=== PATIENT | female | born 1940 | race Caucasian/White ===

== ENCOUNTER 2023-09-05 23:03 | Inpatient (IN) | payer MEDICARE ==
[~2023-09-05] VITALS: Ht 152.4 cm; Wt 54.9 kg
[2023-09-06 00:16] LABS: BASOPHILS % (AUTO) 0.5 % (0.0-2.0); EOSINOPHILS # (AUTO) 0.2 K/uL (0.0-0.7); EOSINOPHILS % (AUTO) 2.1 % (0.0-7.0); HEMATOCRIT 29.8 % (31.2-41.9); HEMOGLOBIN 9.1 g/dL (10.9-14.3); LYMPHOCYTES # (AUTO) 2.5 K/uL (0.8-4.8); MEAN CORPUSCULAR HEMOGLOBIN 21.8 uug (24.7-32.8); MEAN CORPUSCULAR HGB CONC 31 g/dL (32.3-35.6); MEAN CORPUSCULAR VOLUME 71.1 fL (75.5-95.3); MONOCYTES # (AUTO) 0.9 K/uL (0.1-1.30); MONOCYTES % (AUTO) 11.9 % (0.0-11.0); NEUTROPHILS # (AUTO) 3.9 K/uL (1.8-8.9); NEUTROPHILS % (AUTO) 52.5 % (38.5-71.5); PLATELET COUNT (AUTO) 434 K/uL (179-408); RED BLOOD CELL COUNT(AUTO) 4.19 MIL/uL (3.63-4.92); RED CELL DISTRIBUTION WIDTH 20.3 % (12.3-17.7); WHITE BLOOD COUNT (AUTO) 7.5 K/uL (3.8-11.8)
[2023-09-06 00:18] LABS: DIFFERENTIAL COMMENT 1
[2023-09-06 00:28] LABS: *BILIRUBIN,URIN NEGATIVE (NEGATIVE); *BLOOD, URINE NEGATIVE (NEGATIVE); *CLARITY,URINE CLEAR (CLEAR); *COLOR,URINE YELLOW (YELLOW); *KETONES,URINE NEGATIVE (NEGATIVE); *PROTEIN,URINE NEGATIVE (NEGATIVE); *UROBILINOGEN,URINE 0.2 E.U./dl (NORMAL); LEUKOCYTE ESTERASE ,URINE 1+ (NEGATIVE); NITRITE, URINE NEGATIVE (NEGATIVE); PH,URINE 6.5 (5.0-8.0); UGLUCOSE NEGATIVE (NEGATIVE)
[2023-09-06 00:28] LABS: CALCIUM 8.7 mg/dL (8.5-10.1); CARBON DIOXIDE 22 mmol/L (21-32); CHLORIDE 102 mmol/L (98-107); CREATININE 0.8 mg/dL (0.6-1.3); GLUCOSE 123 mg/dL (74-106); POTASSIUM 3.6 mmol/L (3.5-5.1); SODIUM SERUM 137 mmol/L (136-145); UREA NITROGEN, BLOOD 14 mg/dL (7-18)
[2023-09-06 00:33] LABS: ETHANOL < 3 MG/DL (0-10)
[2023-09-06 00:34] LABS: ALANINE AMINOTRANSFERASE 17 U/L (14-59); ALBUMIN 3.3 g/dL (3.4-5.0); ALKALINE PHOSPHATASE 74 U/L (50-136); ASPARTATE AMINOTRANSFERASE 16 U/L (15-37); BILIRUBIN,DIRECT 0.1 mg/dL (0.0-0.2); BILIRUBIN,TOTAL 0.4 mg/dL (0.2-1.0); TOTAL PROTEIN, SERUM 7.3 g/dL (6.4-8.2)
[2023-09-06 00:35] LABS: *AMPHETAMINE, URINE NEGATIVE (NEGATIVE); *BARBITURATE, URINE NEGATIVE (NEGATIVE); *BENZODIAZEPINE, URINE NEGATIVE (NEGATIVE); *CANNABINOID, URINE NEGATIVE (NEGATIVE); *COCCAINE, URINE NEGATIVE (NEGATIVE); *OPIATE, URINE NEGATIVE (NEGATIVE); *PHENCYCLIDINE SCREEN,URINE NEGATIVE (NEGATIVE); FENTANYL, URINE NEGATIVE (NEGATIVE)
[2023-09-06 00:37] LABS: ACETAMINOPHEN < 10.0 ug/mL (10-30)
[2023-09-06 00:42] LABS: THYROID STIMULATING HORMONE 5.553 mIU/mL (0.358-3.740)
[2023-09-06 00:50] LABS: BACTERIA,URINE FEW /HPF (NONE SEEN); RBC,URINE 0-3 /HPF (0-3)
[2023-09-06 00:51] LABS: SQUAMOUS EPITHELIAL CELL,UR MODERATE /HPF (NONE SEEN)
[2023-09-06 01:07] LABS: EOSINOPHILS % (MANUAL) 2 % (0-8); LYMPHOCYTES % (MANUAL) 32 % (20-40); MONOCYTES % (MANUAL) 9 % (2-10); NEUTROPHILS % (MANUAL) 57 % (42-75); PLATELET ESTIMATE ADEQUATE
[2023-09-06 01:28] LABS: ANISOCYTOSIS 2+; HYPOCHROMASIA 2+
[2023-09-06] MEDS ORDERED: LEVO75TA7 (02:38)
[2023-09-06] MEDS ORDERED: HYDR25TA4 (02:38)
[2023-09-06] MEDS ORDERED: VALS160T29 (02:38)
[2023-09-06] MEDS ORDERED: MAGNESIUM HYDROXIDE 30 ML LIQUID UDC PO PRN (03:30)
[2023-09-06] MEDS ORDERED: MAG HYDROX/AL HYDROX/SIMETH 30 ML LIQUID UDC PO PRN (03:30)
[2023-09-06 03:45] VITALS: BP 146/86; TEMP 98.6; O2SAT 95
[2023-09-06] MEDS: LORAZEPAM 0.5 MG TABLET PO PRN (04:23)
[2023-09-06] MEDS: OLANZAPINE 10 MG VIAL IM ONE (04:43)
[2023-09-06 08:17] VITALS: BP 91/49; TEMP 98; O2SAT 98
[2023-09-06] MEDS ORDERED: VALS320T2 PO (10:31)
[2023-09-06] MEDS ORDERED: HYDROCHLOROTHIAZIDE 25 MG TABLET PO SCH (11:30)
[2023-09-06] MEDS: FERROUS SULFATE 325 MG TABEC PO SCH (12:04)
[2023-09-06] MEDS: DIVALPROEX 125 MG TABLET.DR PO SCH (12:04)
[2023-09-06] MEDS: CEphaleXIN 500 MG CAPSULE PO SCH (12:04)
[2023-09-06 15:49] VITALS: BP 123/64; TEMP 98; O2SAT 96
[2023-09-06 19:55] VITALS: BP 111/58; TEMP 98.1; O2SAT 96
[2023-09-06] MEDS: QUETIAPINE FUMARATE 25 MG TABLET PO SCH (20:14)
[2023-09-06] MEDS: TEMAZEPAM 7.5 MG CAPSULE PO PRN (23:22)
[2023-09-07] MEDS: LEVOTHYROXINE SODIUM 75 MCG TABLET PO SCH (07:33)
[2023-09-07 08:06] VITALS: BP 160/68; TEMP 97.8; O2SAT 98
[2023-09-07] MEDS: VALSARTAN 160 MG TABLET PO SCH (08:32)
[2023-09-07] MEDS: QUETIAPINE FUMARATE 25 MG TABLET PO SCH (09:30)
[2023-09-07] MEDS: DIVALPROEX SPRINKLE 125 MG CAP.SPRINK PO SCH (12:19)
[2023-09-07 15:21] VITALS: BP 122/73; TEMP 98; O2SAT 98
[2023-09-07 20:10] VITALS: BP 136/68; TEMP 97.9; O2SAT 95
[2023-09-08] MEDS: ACETAMINOPHEN 325 MG TABLET PO PRN (05:57)
[2023-09-08 07:30] VITALS: BP 137/67; TEMP 98; O2SAT 96
[2023-09-08 16:05] VITALS: BP 106/60; TEMP 98.2; O2SAT 94
[2023-09-08 21:04] VITALS: BP 128/62; TEMP 98.1; O2SAT 94
[2023-09-09 07:40] VITALS: BP 171/66; TEMP 98.5; O2SAT 99
[2023-09-09 10:50] VITALS: BP 103/64
[2023-09-09 16:34] VITALS: BP 114/68; TEMP 98.4; O2SAT 98
[2023-09-09 20:00] VITALS: BP 133/70; TEMP 100.4; O2SAT 98
[2023-09-10 08:09] VITALS: BP 134/86; TEMP 97.7; O2SAT 97
[2023-09-10 16:50] VITALS: BP 141/84; TEMP 97.9; O2SAT 97
[2023-09-10 20:05] VITALS: BP 136/78; TEMP 97.9; O2SAT 96
[2023-09-11 07:40] VITALS: BP 135/80; TEMP 98.2; O2SAT 98
[2023-09-11 10:27] LABS: BASOPHILS % (AUTO) 0.8 % (0.0-2.0); EOSINOPHILS # (AUTO) 0.1 K/uL (0.0-0.7); HEMATOCRIT 23.5 % (31.2-41.9); HEMOGLOBIN 7.5 g/dL (10.9-14.3); MEAN CORPUSCULAR HEMOGLOBIN 22.6 uug (24.7-32.8); MEAN CORPUSCULAR HGB CONC 32 g/dL (32.3-35.6); MONOCYTES # (AUTO) 0.7 K/uL (0.1-1.30); MONOCYTES % (AUTO) 16.8 % (0.0-11.0); NEUTROPHILS # (AUTO) 2.3 K/uL (1.8-8.9); NEUTROPHILS % (AUTO) 55.4 % (38.5-71.5); PLATELET COUNT (AUTO) 320 K/uL (179-408); RED BLOOD CELL COUNT(AUTO) 3.31 MIL/uL (3.63-4.92); RED CELL DISTRIBUTION WIDTH 21.1 % (12.3-17.7); WHITE BLOOD COUNT (AUTO) 4.1 K/uL (3.8-11.8)
[2023-09-11 10:42] LABS: DIFFERENTIAL COMMENT 1
[2023-09-11 10:44] LABS: ALBUMIN 2.4 g/dL (3.4-5.0); BILIRUBIN,TOTAL 0.2 mg/dL (0.2-1.0); CALCIUM 8.4 mg/dL (8.5-10.1); CREATININE 0.7 mg/dL (0.6-1.3); POTASSIUM 3.6 mmol/L (3.5-5.1); TOTAL PROTEIN, SERUM 6.2 g/dL (6.4-8.2)
[2023-09-11 12:48] LABS: ANISOCYTOSIS 2+; HYPOCHROMASIA 2+; LYMPHOCYTES % (MANUAL) 31 % (20-40); MONOCYTES % (MANUAL) 12 % (2-10); NEUTROPHILS % (MANUAL) 57 % (42-75); PLATELET ESTIMATE ADEQUATE
[2023-09-11 16:10] VITALS: BP 128/55; TEMP 98.5; O2SAT 98
[2023-09-11 20:06] VITALS: BP 127/68; TEMP 98.3; O2SAT 96
[2023-09-11] MEDS: QUETIAPINE FUMARATE 25 MG TABLET PO SCH (20:26)
[2023-09-12 08:29] VITALS: BP 155/74; TEMP 98; O2SAT 98
[2023-09-12] MEDS: QUETIAPINE FUMARATE 25 MG TABLET PO SCH (09:51)
[2023-09-12 13:42] LABS: HEMATOCRIT 25.2 % (31.2-41.9); HEMOGLOBIN 7.9 g/dL (10.9-14.3)
[2023-09-12 15:34] VITALS: BP 136/69; TEMP 98; O2SAT 100
[2023-09-12 20:30] VITALS: BP 117/58; TEMP 97.9; O2SAT 100
[2023-09-13 07:58] VITALS: BP 160/77; TEMP 98.2; O2SAT 99
[2023-09-13 08:40] LABS: BASOPHILS # (AUTO) 0.1 K/UL (0.0-0.2); BASOPHILS % (AUTO) 1.2 % (0.0-2.0); EOSINOPHILS # (AUTO) 0.2 K/uL (0.0-0.7); EOSINOPHILS % (AUTO) 3.5 % (0.0-7.0); HEMATOCRIT 26.3 % (31.2-41.9); HEMOGLOBIN 8.3 g/dL (10.9-14.3); LYMPHOCYTES # (AUTO) 1.7 K/uL (0.8-4.8); LYMPHOCYTES % (AUTO) 38.7 % (20.5-51.5); MEAN CORPUSCULAR HEMOGLOBIN 22.6 uug (24.7-32.8); MEAN CORPUSCULAR HGB CONC 32 g/dL (32.3-35.6); MEAN CORPUSCULAR VOLUME 71.6 fL (75.5-95.3); MONOCYTES # (AUTO) 0.6 K/uL (0.1-1.30); MONOCYTES % (AUTO) 13.1 % (0.0-11.0); NEUTROPHILS # (AUTO) 1.9 K/uL (1.8-8.9); NEUTROPHILS % (AUTO) 43.5 % (38.5-71.5); PLATELET COUNT (AUTO) 370 K/uL (179-408); RED BLOOD CELL COUNT(AUTO) 3.67 MIL/uL (3.63-4.92); RED CELL DISTRIBUTION WIDTH 21.2 % (12.3-17.7); WHITE BLOOD COUNT (AUTO) 4.4 K/uL (3.8-11.8)
[2023-09-13 08:54] LABS: CALCIUM 8.5 mg/dL (8.5-10.1); CARBON DIOXIDE 25 mmol/L (21-32); CHLORIDE 107 mmol/L (98-107); CREATININE 0.6 mg/dL (0.6-1.3); GLUCOSE 90 mg/dL (74-106); MAGNESIUM 2.1 mg/dL (1.8-2.4); PHOSPHOROUS 3.8 mg/dL (2.5-4.9); POTASSIUM 3.9 mmol/L (3.5-5.1); SODIUM SERUM 143 mmol/L (136-145); UREA NITROGEN, BLOOD 13 mg/dL (7-18)
[2023-09-13 10:45] VITALS: BP 146/65; O2SAT 97
[2023-09-13 15:34] VITALS: BP 139/58; TEMP 98.2; O2SAT 98
[2023-09-13] MEDS: risperiDONE 0.5 MG TABLET PO SCH (17:37)
[2023-09-13 20:00] VITALS: BP 135/60; TEMP 97.8; O2SAT 100
[2023-09-14 07:30] VITALS: BP 125/60; TEMP 98; O2SAT 98
[2023-09-14 15:29] VITALS: BP 158/76; TEMP 98; O2SAT 98
[2023-09-14] MEDS: risperiDONE 0.5 MG TABLET PO SCH (17:48)
[2023-09-14 20:00] VITALS: BP 144/76; TEMP 99; O2SAT 98
[2023-09-15 07:30] VITALS: BP 176/84; TEMP 98; O2SAT 96
[2023-09-15 15:12] VITALS: BP 147/61; TEMP 98.2; O2SAT 99
[2023-09-15 20:00] VITALS: BP 140/85; TEMP 98.8; O2SAT 96
[2023-09-16 07:59] VITALS: BP 155/78; TEMP 98.3; O2SAT 98
[2023-09-16 09:00] VITALS: BP 138/66; TEMP 98.3; O2SAT 100
[2023-09-16 12:48] LABS: CREATININE 0.6 mg/dL (0.6-1.3); POTASSIUM 3.6 mmol/L (3.5-5.1)
[2023-09-16 16:55] VITALS: BP 168/66; TEMP 98.2; O2SAT 98
[2023-09-16 17:30] VITALS: BP 156/66; O2SAT 98
[2023-09-16 20:00] VITALS: BP 142/80; TEMP 98.1; O2SAT 98
[2023-09-17 08:46] VITALS: BP 137/76; TEMP 98.1; O2SAT 98
[2023-09-17 16:12] VITALS: BP 149/62; TEMP 98; O2SAT 97
[2023-09-17 18:54] LABS: *OCCULT BLOOD STOOL NEGATIVE (NEGATIVE)
[2023-09-17 20:13] VITALS: BP 144/60; TEMP 98.2; O2SAT 99
[2023-09-18 07:56] VITALS: BP 151/66; TEMP 98.1; O2SAT 98
[2023-09-18] MEDS: DIVALPROEX SPRINKLE 125 MG CAP.SPRINK PO SCH (12:47)
[2023-09-18] MEDS: risperiDONE 0.5 MG TABLET PO SCH ×2 (12:47→21:17)
[2023-09-18 16:40] VITALS: BP 145/56; TEMP 98; O2SAT 98
[2023-09-18 19:54] VITALS: BP 115/73; TEMP 98.1; O2SAT 98
[2023-09-19 07:30] VITALS: BP 149/69; TEMP 98; O2SAT 96
[2023-09-19] MEDS: DIVALPROEX SPRINKLE 125 MG CAP.SPRINK PO SCH (13:44)
[2023-09-19 15:18] VITALS: BP 109/45; TEMP 98; O2SAT 96
[2023-09-19 20:10] VITALS: BP 134/59; TEMP 98.1; O2SAT 99
[2023-09-19] MEDS: risperiDONE 1 MG TABLET PO SCH (20:20)
[2023-09-20 07:53] VITALS: BP 140/79; TEMP 98.2; O2SAT 96
[2023-09-20 08:25] LABS: BASOPHILS % (AUTO) 0.4 % (0.0-2.0); DIFFERENTIAL COMMENT 1; EOSINOPHILS # (AUTO) 0.2 K/uL (0.0-0.7); EOSINOPHILS % (AUTO) 3.1 % (0.0-7.0); HEMATOCRIT 28.9 % (31.2-41.9); LYMPHOCYTES # (AUTO) 1.8 K/uL (0.8-4.8); LYMPHOCYTES % (AUTO) 30.9 % (20.5-51.5); MEAN CORPUSCULAR HEMOGLOBIN 22.5 uug (24.7-32.8); MEAN CORPUSCULAR HGB CONC 31 g/dL (32.3-35.6); MEAN CORPUSCULAR VOLUME 72.1 fL (75.5-95.3); MONOCYTES # (AUTO) 0.7 K/uL (0.1-1.30); MONOCYTES % (AUTO) 13.2 % (0.0-11.0); NEUTROPHILS % (AUTO) 52.4 % (38.5-71.5); PLATELET COUNT (AUTO) 519 K/uL (179-408); RED BLOOD CELL COUNT(AUTO) 4.01 MIL/uL (3.63-4.92); RED CELL DISTRIBUTION WIDTH 22.5 % (12.3-17.7); WHITE BLOOD COUNT (AUTO) 5.7 K/uL (3.8-11.8)
[2023-09-20 08:47] LABS: ALANINE AMINOTRANSFERASE 7 U/L (14-59); ALBUMIN 3.2 g/dL (3.4-5.0); ALKALINE PHOSPHATASE 63 U/L (50-136); ASPARTATE AMINOTRANSFERASE 7 U/L (15-37); BILIRUBIN,TOTAL 0.3 mg/dL (0.2-1.0); CALCIUM 8.6 mg/dL (8.5-10.1); CARBON DIOXIDE 23 mmol/L (21-32); CHLORIDE 107 mmol/L (98-107); CREATININE 0.6 mg/dL (0.6-1.3); GLUCOSE 100 mg/dL (74-106); POTASSIUM 3.2 mmol/L (3.5-5.1); SODIUM SERUM 143 mmol/L (136-145); TOTAL PROTEIN, SERUM 7.3 g/dL (6.4-8.2); UREA NITROGEN, BLOOD 12 mg/dL (7-18); VALPROIC ACID 45 ug/mL (50-100)
[2023-09-20] MEDS: risperiDONE 0.5 MG TABLET PO SCH (13:03)
[2023-09-20] MEDS: POTASSIUM CHLORIDE 20 MEQ TAB.PRT.SR PO ONE (14:50)
[2023-09-20 15:16] VITALS: BP 123/53; TEMP 98; O2SAT 99
[2023-09-20] MEDS: risperiDONE 1 MG TABLET PO SCH (17:33)
[2023-09-20 20:00] VITALS: BP 126/60; TEMP 98; O2SAT 97
[2023-09-21 08:04] VITALS: BP 135/62; TEMP 98; O2SAT 98
[2023-09-21 15:30] VITALS: BP 130/76; TEMP 97.8; O2SAT 96
[2023-09-21 20:00] VITALS: BP 111/62; TEMP 97.9; O2SAT 95
[2023-09-22 07:58] VITALS: BP 103/73; TEMP 98.2; O2SAT 96
[2023-09-22 09:00] VITALS: BP 103/75
== END 2023-09-22 13:45 | DRG 885 ==
LOC: ER 23:12 → GPS 23:40
PROVIDERS: ADMIT Psychiatry & Neurology Psychosomatic Medicine; ATTEND Nurse Practitioner Acute Care
DX: F29 Unspecified psychosis not due to a substance or known physiological condition (principal); E43 Unspecified severe protein-calorie malnutrition; N39.0 Urinary tract infection, site not specified; F03.93 Unspecified dementia, unspecified severity, with mood disturbance; D75.839 Thrombocytosis, unspecified; Z96.653 Presence of artificial knee joint, bilateral; E03.9 Hypothyroidism, unspecified; I10 Essential (primary) hypertension; Z79.890 Hormone replacement therapy; Z79.899 Other long term (current) drug therapy; D50.9 Iron deficiency anemia, unspecified; E88.09 Other disorders of plasma-protein metabolism, not elsewhere classified; B96.89 Other specified bacterial agents as the cause of diseases classified elsewhere; R19.7 Diarrhea, unspecified
CPT/HCPCS: 36415; 70030-TC; 80164; 83735; 84100; 84443; 85018; 85025; 93005; G0480; J2358